=== PATIENT | male | born 1975 | race American Indian/Alaskan Native ===

== ENCOUNTER 2016-05-26 14:45 | Outpatient (CLI) | payer OTHER ==
--- NOTE | 2016-05-29 08:38 | Magnetic Resonance Report ---
MR LUMBAR SPINE WITHOUT CONTRAST HISTORY: Lumbar radiculopathy, back pain. TECHNIQUE: Axial T1 and T2. Sagittal T1, T2 and STIR. COMPARISON: No relevant comparison. FINDINGS: There is straightening of the normal lordosis. Normal height and alignment of the lumbar vertebra. No evidence for fracture, subluxation or bone lesion. Moderate degenerative Modic type II endplate changes are noted at L5-S1. The conus terminates at the level of L1. No signal abnormality or mass. Mild disc desiccation and narrowing at L4-5. Severe disc desiccation and narrowing of L5-S1. There is mild diffuse facet arthropathy. 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 L1-2: No significant abnormality. L2-3: No significant abnormality. L3-4: No significant abnormality of the disc. Mild facet arthropathy and hypertrophy of the ligamentum flavum. L4-5: Mild disc desiccation and narrowing is again noted. There is a mild diffuse posterior bulging disc. A left paracentral to left lateral annular tear is identified. There appears to be a small broad-based dense disc protrusion in this area that projects in the left neural foramen. Right neural foraminal narrowing is estimated at 50%. Left neural foraminal narrowing is estimated at 50-75% L5-S1: Advanced disc narrowing and desiccation is noted. There is a circumferential bulging spur disc complex at this level. Mild facet arthropathy and hypertrophy of the ligamentum flavum. There is borderline central canal narrowing at this level measuring 9 mm in AP dimension. Moderate bilateral neural foraminal narrowing is estimated at 50-75%. IMPRESSION: Straightening of the normal lordosis. Moderate to severe degenerative disc disease at L4-5 and L5-S1 as outlined above. There is left neural foraminal narrowing at L4-5 and bilateral neural foraminal narrowing at L5-S1. Please correlate with the patient's radiculopathy.
== END 2016-05-26 14:47 | disposition home or self-care (01) ==
LOC: SPVIMAG 14:45
PROVIDERS: ATTEND Family Medicine
DX: M54.16 Radiculopathy, lumbar region (principal); M12.88 Other specific arthropathies, not elsewhere classified, other specified site; M24.28 Disorder of ligament, vertebrae
CPT/HCPCS: 72148